=== PATIENT | male | born 1995 | race Caucasian/White ===

== ENCOUNTER 2019-08-22 14:45 | Emergency (ER) | payer SELFPAY ==
--- NOTE | ~2019-08-22 | XR_ITS ---
XR chest 2V DATE: 08/22/2019 15:55 INDICATION: Midsternal chest pain radiating to jaw TECHNIQUE: PA and lateral views COMPARISON: None FINDINGS: Normal heart size. No hilar or mediastinal enlargement. The lungs are normally inflated and clear of infiltrate or consolidation. No pleural effusion or pulmonary vascular congestion or pneumo thorax. IMPRESSION: Negative Reviewed, dictated and finalized at location A. IMPRESSION: Negative
[2019-08-22 14:55] VITALS: BP 156/79; PULSE 68; RESP 20; TEMP 36.8; O2SAT 98
--- NOTE | 2019-08-22 15:15 | ECG_ITS ---
Measurements Intervals [place] Rate: 71 P: 23 WV: 163 QRS: -3 QRSD: 102 T: 5 QT: 385 QTc: 421 Interpretive Statements SINUS RHYTHM WITH SINUS ARRHYTHMIA BORDERLINE T WAVE ABNORMALITY- INFERIOR LEADS BORDERLINE ECG Electronically Signed On 08-22-2019 15:45:33 CDT by Chino Stone D.O.
[2019-08-22 16:01] LABS: Alanine Aminotransferase 40 U/L (16-63); Alkaline Phosphatase 26 U/L (46-116); Aspartate Amino Transferase 17 U/L (15-37); Bilirubin,Total 0.3 mg/dL (0.00-1.00); Blood Urea Nitrogen 14 mg/dL (7-18); Calcium 8.8 mg/dL (8.5-10.1); Carbon Dioxide 28 mmol/L (21-32); Chloride 103 mmol/L (98-108); Estimated Glomerular Filt Rate > 60; Glucose 91 mg/dL (70-99); Lipase 63 U/L (73-393); Osmolality Calculated 286 mOsm/kg (285-295); Sodium 138 mmol/L (136-145); Total Protein 7.7 g/dL (6.4-8.2)
[2019-08-22 16:03] LABS: Troponin I < 0.02 ng/mL (0.00-0.056)
[2019-08-22 16:12] LABS: BNP < 5.0 pg/mL (0-100)
--- NOTE | 2019-08-22 16:12 | ED.CHESTPAIN ---
HPI - Chest Pain General Chief Complaint: Chest Pain Stated Complaint: Chest Pains goes to jaw up to his head Source: patient Mode of arrival: ambulatory Limitations: no limitations History of Present Illness HPI narrative: this is a 24-year-old gentleman that presents with some episodic chest pain that he describes as squeezing and radiating into his neck and his head, currently did not have any chest pain today but came in to be evaluated. Patient has episodic chest discomfort that is being on and off with no associated symptoms of dyspnea, no nausea vomiting no epigastric pain no epigastric burning no fever chills. complaint: chest pain ( currently not having any chest pain today) Timing of current episode: episodic Prior episodes: Yes Onset: during rest Pain location: left chest Pain radiation: neck and jaw/teeth Quality: tightness Risk Factors Coronary artery disease risk factors: none Thoracic aortic dissection risk factors: none Related Data Home Medications Medication Instructions Recorded Confirmed No Home Medications 08/22/19 08/22/19 Allergies Allergy/AdvReac Type Severity Reaction Status Date / Time No Known Allergies Allergy Unverified 12/16/13 15:48 Review of Systems Review of Systems: All systems reviewed & are unremarkable except as noted in HPI and below PMFSH Past Medical History Medical History Patient denies medical problems Exam Const: General: no acute distress and alert Orientation/consciousness: patient oriented x3 HENMT: Head: normal to inspection Eyes: Conjunctivae: conjunctivae normal Pupils: Equal, round and reactive pupils present Neck: Neck: normal visual inspection Chest: Chest palpation & inspection: normal inspection of the chest Resp: Effort & Inspection: normal respiratory effort Auscultation: clear to auscultation bilaterally Cardio: Rate: regular rate Rhythm: regular rhythm GI: Auscultation: normal bowel sounds : Testes: Testes normal Skin: General skin exam: normal color Rashes: no rashes Neuro: General: patient oriented x3, moves all extremities and no meningeal signs Extrem: General: normal to inspection Psych: Mental Status: mental status grossly normal Course Course Emergency Course: Reassessment of patient, reassured patient that his EKG and subsequent blood work were within normal limits and recommended him follow-up with his primary care physician for further workup. Patient currently is asymptomatic with no chest pain no shortness of breath no symptoms whatsoever currently. Vital Signs Vital signs: Vital Signs Temperature 36.8 C 08/22/19 14:55 Pulse Rate 68 08/22/19 14:55 Respiratory Rate 08/22/19 14:55 Blood Pressure 156/79 H 08/22/19 14:55 Pulse Oximetry 98 08/22/19 14:55 Temperature 36.8 C 08/22/19 14:55 Pulse Rate 68 08/22/19 14:55 Respiratory Rate 08/22/19 14:55 Blood Pressure 156/79 H 08/22/19 14:55 Pulse Oximetry 98 08/22/19 14:55 MDM - Chest Pain Lab Data Attestation: I reviewed the patient's lab results. Result diagrams: 08/22/19 15:41 Labs: Lab Results 08/22/19 08/22/19 Range/Units 15:41 15:41 Sodium 138 (136-145) mmol/L Potassium 4.0 (3.5-5.1) mmol/L Chloride 103 (98-108) mmol/L Carbon Dioxide 28 (21-32) mmol/L Anion Gap 11.0 (7-16) mmol/L BUN 14 (7-18) mg/dL Creatinine 1.03 (0.70-1.30) mg/dL Estim Creat Clear Calc Not Reportable Estimated GFR > 60 (59 - ) Glucose 91 (70-99) mg/dL Calculated Osmolality 286 (285-295) mOsm/kg Calcium 8.8 (8.5-10.1) mg/dL Total Bilirubin 0.3 (0.00-1.00) mg/dL AST 17 (15-37) U/L ALT 40 (16-63) U/L Alkaline Phosphatase 26 L (46-116) U/L Troponin I < 0.02 (0.00-0.056) ng/mL B-Natriuretic Peptide < 5.0 (0-100) pg/mL Total Protein 7.7 (6.4-8.2) g/dL Albumin 4.0 (3.4-5.0) g/dL Li
--- NOTE | 2019-08-22 16:25 | PC.NURSE ---
CALL PLACED TO DR NAYLOR FOR CONSULT - [phone]
[2019-08-22 16:38] VITALS: BP 133/85
== END 2019-08-22 16:40 | disposition home or self-care (01) ==
PROVIDERS: Emergency Provider Emergency Medicine; PCP Internal Medicine
DX: R07.89 Other chest pain (principal)
CPT/HCPCS: 36415; 71046; 80053; 83690; 83880; 84484; 93005; 99284